=== PATIENT | female | born 1985 | race African-American/Black ===

== ENCOUNTER 2019-08-01 13:30 | Emergency (ER) | payer OTHER ==
[~2019-08-01 13:30] MED LIST: AMOXIL250 M1 PO; ANAPROX DS550 MG PO; BIRTH CONTROL1 EAC1 PO; CIPROFLOXACIN500 MG PO; CLARITIN-D 12 H1 TAB PO; NKHM; PEN-VEE K500 MG PO; PEPCID20 MG PO; PROVENTIL0.09 MG/AC IH; PYRIDIUM200 MG PO; ZITHROMAX Z PA250 MG PO; ZOFRAN ODT4 MG SL; ZOFRAN4 MG PO; Zofran4 MG PO; [UNRECOGNIZED DRUG - OTHER] PO
[2019-08-01 14:02] VITALS: BP 139/76
[2019-08-01 14:40] LABS: BASO % 0.4 % (0.0-1.0); EOS # 0.4 10*3/uL (0.0-0.4); EOS % 6.7 % (1.0-4.0); HEMATOCRIT 42.2 % (37.0-47.0); HEMOGLOBIN 13.2 g/dl (12.0-16.0); LYMPH # 2.7 10*3/uL (1.3-4.4); LYMPH % 51.9 % (27.0-41.0); MEAN CELL VOLUME 95.9 fl (81.0-99.0); MEAN CORPUSCULAR HGB CONC 31.3 g/dl (33.0-37.0); MEAN PLATELET VOLUME 9.3 fl (9.6-12.3); MONO # 0.3 10*3/uL (0.1-1.0); MONO % 6.5 % (3.0-9.0); NEUT # 1.8 10*3/uL (2.3-7.9); NEUT % 34.3 % (47.0-73.0); PLATELET COUNT AUTOMATED 277 10*3/uL (130-400); WHITE BLOOD COUNT 5.2 10*3/uL (4.8-10.8)
[2019-08-01 14:51] LABS: COLOR YELLOW (YELLOW)
[2019-08-01 14:52] LABS: BILIRUBIN 2+ (NEGATIVE); BLOOD 3+ (NEGATIVE); CLARITY SL CLOUDY (CLEAR); GLUCOSE NEGATIVE (NEGATIVE); KETONE 2+ (NEGATIVE); LEUKO ESTERASE 1+ (NEGATIVE); NITRITE NEGATIVE (NEGATIVE); UROBILINOGEN 0.2 E.U./dl (0.2-1.0)
[2019-08-01 14:53] LABS: BACTERIA 1+; EPITHELIAL CELLS 21-30; MUCOUS 1+
[2019-08-01 14:54] LABS: ALBUMIN 3.9 gm/dl (3.1-4.5); ALKALINE PHOSPHATASE 50 U/L (45-117); BUN 10 mg/dl (7-24); CHLORIDE 104 mmol/L (98-107); CREATININE 0.82 mg/dL (0.55-1.02); POTASSIUM 3.6 mmol/L (3.5-5.1); SGOT/AST 24 IU/L (3-35); SGPT/ALT 28 U/L (12-78); SODIUM 139 mmol/L (136-145); TOTAL PROTEIN 8.2 gm/dL (6.4-8.2)
[2019-08-01] MEDS ORDERED: ZOFRAN4 MG PO (15:30)
[2019-08-01] MEDS ORDERED: LOMOTIL 2.5-0.1 EACH PO (15:32)
== END 2019-08-01 15:41 | disposition home or self-care (01) ==
LOC: ED 13:30
PROVIDERS: Emergency Medicine
DX: K52.9 Noninfective gastroenteritis and colitis, unspecified (principal); R11.2 Nausea with vomiting, unspecified

== ENCOUNTER 2020-05-27 12:13 | Emergency (ER) | payer OTHER ==
[~2020-05-27 12:13] MED LIST changes: +LOMOTIL 2.5-0.1 EACH PO
[2020-05-27 12:17] VITALS: BP 129/80
[2020-05-27] MEDS ORDERED: AUGMENTIN 875875 MG PO (12:40)
[2020-05-27] MEDS ORDERED: IBUPROFEN600 MG PO (12:40)
== END 2020-05-27 13:28 | disposition home or self-care (01) ==
LOC: ED 12:13
DX: K04.7 Periapical abscess without sinus (principal)

== ENCOUNTER 2023-12-09 17:22 | Emergency (ER) | payer OTHER ==
[~2023-12-09] VITALS: Ht 165.1 cm; Wt 68.0 kg
[~2023-12-09 17:22] MED LIST changes: +AUGMENTIN 875875 MG PO; +IBUPROFEN600 MG PO
[2023-12-09 17:55] VITALS: BP 124/88
[2023-12-09] MEDS ORDERED: AMOX-CLAV 875-1 EACH PO (18:50)
[2023-12-09] MEDS ORDERED: MELOXICAM15 MG PO (18:50)
[2023-12-09] MEDS ORDERED: Amoxicillin/Clavulanate Pota 875 MG TAB PO ONE (18:50)
== END 2023-12-09 19:41 | disposition home or self-care (01) ==
LOC: ED 17:22
DX: K04.7 Periapical abscess without sinus (principal); F17.290 Nicotine dependence, other tobacco product, uncomplicated; Z79.2 Long term (current) use of antibiotics; Z79.899 Other long term (current) drug therapy